=== PATIENT | male | born 1940 | race Asian ===

== ENCOUNTER 2019-06-09 05:18 | Emergency (ER) | payer MEDICARE, MEDICAID ==
[~2019-06-09] VITALS: Ht 170.2 cm; Wt 82.0 kg
[2019-06-09] MEDS ORDERED: FINA1TAB16 PO (05:31)
[2019-06-09] MEDS ORDERED: TAMS-11 PO (05:31)
[2019-06-09] MEDS ORDERED: LISI-167 PO (05:31)
--- NOTE | 2019-06-09 05:31 | NUR ---
Pt is primarly Turkmen speaking - phone commercial attorney used. Pt arrives via [facility] for HTN at home. Pt reports BP of 206/106. Pt took 3 lisinopril at home with no relief. Pt reports headache to back of head. Pt is alert, oriented and ambulatory. NAD. Pt in gown and placed on full monitors. EKG performed. Call light in place. PIV established by [facility].
[2019-06-09] MEDS ORDERED: AMLODIPINE 5 MG TABLET PO ONE (06:00)
[2019-06-09] MEDS ORDERED: AMLODIPINE 5 MG TABLET ONE (06:01)
--- NOTE | 2019-06-09 06:06 | NUR ---
Pt alert and resting on gurney. VSS. Pt medicated per MAR and remains on full monitors. Aware of plan for lab draw. Call light within reach.
[2019-06-09 06:30] LABS: BASOPHILS # (AUTO) 0.02 x10^3/uL (0-0.1); BASOPHILS % (AUTO) 0 % (0-1); EOSINOPHILS % (AUTO) 2 % (1-7); LYMPHOCYTES # (AUTO) 1.12 x10^3/uL (1-3.4); LYMPHOCYTES % (AUTO) 28 % (22-44); MD NO; MEAN CORPUSCULAR HEMOGLOBIN 31.7 pg (27.5-34.5); MEAN CORPUSCULAR HGB CONC 33.9 g/dL (33.2-36.2); MEAN CORPUSCULAR VOLUME 93.6 fL (81-97); MEAN PLATELET VOLUME 8.5 fL (7.4-10.4); MONOCYTES # (AUTO) 0.31 x10^3/uL (0.2-0.8); MONOCYTES % (AUTO) 8 % (2-9); NEUTROPHILS # (AUTO) 2.47 x10^3/uL (1.8-6.8); NEUTROPHILS % (AUTO) 62 % (42-75); PLATELET COUNT 135 x10^3/uL (130-400); RED BLOOD COUNT 4.73 x10^6/uL (4.38-5.82); RED CELL DISTRIBUTION WIDTH 13.2 % (9.4-14.8)
[2019-06-09 06:34] LABS: ALANINE AMINOTRANSFERASE 33 U/L (12-78); ALBUMIN 3.4 g/dL (3.4-5.0); ANION GAP 5 mmol/L (5-15); CALCIUM 8.7 mg/dL (8.5-10.1); CHLORIDE 108 mmol/L (98-107); CREATININE 0.84 mg/dL (0.7-1.3)
[2019-06-09 06:39] LABS: ALKALINE PHOSPHATASE 56 U/L (45-117); BILIRUBIN,TOTAL 0.6 mg/dL (0.2-1.0); TOTAL PROTEIN 7.3 g/dL (6.4-8.2); TROPONIN I < 0.015 ng/mL (0.000-0.045)
--- NOTE | 2019-06-09 06:57 | NUR ---
at bedside speaking to pt.
--- NOTE | 2019-06-09 07:00 | NUR ---
Bedside report received from Caleb WALLACE, pt care assumed at this time.
--- NOTE | 2019-06-09 07:01 | NUR ---
Report to [facility]
--- NOTE | 2019-06-09 07:28 | NUR ---
Pt given discharge instructions and they have confirmed that they understand the instructions. Patient ambulatory with steady gait. Offline Editor used, number [id number]. Pt questions answered.
[2019-06-09 07:29] VITALS: BP 159/81
== END 2019-06-09 07:31 | disposition home or self-care (01) ==
LOC: ED 06:21
DX: I10 Essential (primary) hypertension (principal); R51 Headache; R94.31 Abnormal electrocardiogram [ECG] [EKG]; Z87.891 Personal history of nicotine dependence; Z88.8 Allergy status to other drugs, medicaments and biological substances
CPT/HCPCS: 36415; 80053; 83880; 84484; 85025; 93005; 99284

== ENCOUNTER → 2020-07-25 | Outpatient (CLI) | payer MEDICARE ==
[~2020-07-25] MED LIST: FINA1TAB16 PO; LISI-167 PO; TAMS-11 PO
== END | disposition home or self-care (01) ==
LOC: CVU 06:40
PROVIDERS: ATTEND Internal Medicine Cardiovascular Disease
DX: I71.4 Abdominal aortic aneurysm, without rupture (principal); R07.9 Chest pain, unspecified; R94.31 Abnormal electrocardiogram [ECG] [EKG]
CPT/HCPCS: 93978

== ENCOUNTER → 2020-08-17 | Outpatient (CLI) | payer MEDICARE ==
[~2020-08-17] MED LIST changes: +REGADENOSON 0.4 MG/5 ML SYRINGE ONE
== END | disposition home or self-care (01) ==
LOC: CFH 07:33
PROVIDERS: ATTEND Internal Medicine Cardiovascular Disease
DX: R94.31 Abnormal electrocardiogram [ECG] [EKG] (principal); R07.9 Chest pain, unspecified
CPT/HCPCS: 78452; 93017; A9502; J2785

== ENCOUNTER 2020-10-13 08:39 | Day surgery (SDC) | payer MEDICARE, MEDICAID ==
[~2020-10-13] VITALS: Ht 177.8 cm; Wt 86.4 kg
[~2020-10-13 08:39] MED LIST changes: -REGADENOSON 0.4 MG/5 ML SYRINGE ONE
[2020-10-13] MEDS ORDERED: PLEASE ENTER HEIGHT AND WEIGHT MC SCH (09:30)
[2020-10-13 10:43] VITALS: BP 119/74
[2020-10-13 10:59] LABS: ANION GAP 6 mmol/L (5-15); CALCIUM 8.4 mg/dL (8.5-10.1); CHLORIDE 109 mmol/L (98-107); CREATININE 0.79 mg/dL (0.7-1.3)
[2020-10-13] MEDS ORDERED: SODIUM CHLORIDE 0.9% 1,000 ML IV SCH ×2 (11:00→13:00)
[2020-10-13 11:06] LABS: BASOPHILS % (AUTO) 1 % (0-1); EOSINOPHILS % (AUTO) 1 % (1-7); LYMPHOCYTES % (AUTO) 36 % (22-44); MEAN CORPUSCULAR HEMOGLOBIN 31.6 pg (27.5-34.5); MEAN CORPUSCULAR HGB CONC 34.4 g/dL (33.2-36.2); MEAN PLATELET VOLUME 8.2 fL (7.4-10.4); MONOCYTES % (AUTO) 10 % (2-9); NEUTROPHILS % (AUTO) 53 % (42-75); PLATELET COUNT 117 x10^3/uL (130-400); RED CELL DISTRIBUTION WIDTH 13.8 % (9.4-14.8)
[2020-10-13] MEDS ORDERED: FENTANYL PF 100 MCG/2ML ONE (12:22)
[2020-10-13] MEDS ORDERED: LIDOCAINE-MPF 1%, 5ML ONE (12:23)
[2020-10-13] MEDS ORDERED: VERAPAMIL 2.5 MG/ML, 2ML ONE (12:23)
[2020-10-13] MEDS ORDERED: BIVALIRUDIN 250 MG ONE (12:23)
[2020-10-13] MEDS ORDERED: MIDAZOLAM 1 MG/ML, 2ML ONE (12:23)
[2020-10-13] MEDS ORDERED: TICAGRELOR 90 MG TABLET ONE (12:23)
[2020-10-13] MEDS ORDERED: HEPARIN 1,000 UNITS/ML, 10ML ONE (12:23)
== END 2020-10-13 15:27 | disposition home or self-care (01) ==
LOC: CACL 08:39
PROVIDERS: ATTEND Internal Medicine Cardiovascular Disease
DX: R94.39 Abnormal result of other cardiovascular function study (principal); I20.0 Unstable angina; I10 Essential (primary) hypertension; E78.2 Mixed hyperlipidemia; N40.0 Benign prostatic hyperplasia without lower urinary tract symptoms; E66.3 Overweight; Z68.28 Body mass index [BMI] 28.0-28.9, adult; Z79.899 Other long term (current) drug therapy; Z87.891 Personal history of nicotine dependence; Z98.890 Other specified postprocedural states
CPT/HCPCS: 36415; 80048; 85025; 93458; 99156; C1769; C1894; J1644; J2250; J3010; Q9967; J0583